=== PATIENT | female | born 1985 | race Caucasian/White ===

== ENCOUNTER 2019-03-04 10:23 | Emergency (ER) | payer MEDICAID ==
[~2019-03-04] VITALS: Ht 170.2 cm; Wt 68.0 kg
[2019-03-04 11:11] VITALS: BP_SYST 108
[2019-03-04] MEDS ORDERED: ACETAMINOPHEN/CODEINE 300 MG-30 MG TABLET PO ONE (12:15)
[2019-03-04 13:00] VITALS: BP_SYST 128
== END 2019-03-04 13:00 | disposition home or self-care (01) ==
LOC: SED 10:23
DX: K02.9 Dental caries, unspecified (principal); K08.89 Other specified disorders of teeth and supporting structures; Z88.0 Allergy status to penicillin
CPT/HCPCS: 99283